=== PATIENT | male | born 1990 | race Caucasian/White ===

== ENCOUNTER 2016-07-20 12:36 | Observation (INO) | payer BC ==
[2016-07-20] VITALS (7 sets, daily range): BP systolic 100–136; BP diastolic 63–73; PULSE 62–75; TEMP 36.4–36.7; O2SAT 94–98; Ht 180.3 cm; Wt 89.1 kg
[~2016-07-20] VITALS: Ht 180.3 cm; Wt 89.1 kg
[~2016-07-20 12:36] MED LIST: ALBUAER19 INH
[2016-07-20] MEDS ORDERED: SODIUM CHLORIDE 0.9% 1000ML 1,000 ML IV STA (12:55)
[2016-07-20] MEDS ORDERED: OPTIRAY 320 IV PRN (13:00)
--- NOTE | 2016-07-20 13:02 | EMERGENCY ROOM VISIT NOTE ---
History First contact with patient: 12:42 Chief Complaint: ABDOMINAL PAIN Stated Complaint: ABD PAIN,APPENDIX Nursing Triage Summary: pt sent over from [facility] for RLQ pain since yesterday no n/v/d History of Present Illness The patient is a 25 year old male who presents to the Emergency Room with complaints of abdominal pain. The patient states his pain started last night around 4 PM. He states that the pain has localized to the right lower quadrant. He rates his discomfort a 5/10. He states he does have some pain that radiates to both testicles. He denies any nausea, vomiting or diarrhea. He denies any fevers. He denies any pain in his chest or trouble breathing. He denies any recent illness. He denies any penile rash. He denies any dysuria , urgency or frequency. He denies any history of abdominal surgery. He states that he had his wisdom teeth removed in the past and did have some agitation after the anesthesia. The patient was seen at the walk-in clinic and was referred to the emergency department for evaluation of possible appendicitis. Review of Systems A 10 system review of systems was completed with positives and pertinent negatives listed in the HPI. Past Medical/Surgical History Medical Problems: (1) abdominal pain, acute appendicitis (2) abdominal pain, acute appendicitis Patient denies Social History Alcohol Use: none Occupation Status: employed Current/Historical Medications Scheduled Albuterol Hfa (Ventolin Hfa), 2 PUFFS INH QID Fluticasone Prop/Salmeterol (Advair Diskus 250/50 60 Dose), Unknown Dose INH BID Allergies Coded Allergies: No Known Allergies (Unverified , 07/20/16) Physical Exam Vital Signs Date Time Temp Pulse Resp B/P Pulse Ox O2 Delivery O2 Flow Rate FiO2 07/20/16 20:15 36.7 65 16 127/80 98 Mask 2 07/20/16 20:05 71 18 114/77 98 Mask 2 07/20/16 19:55 75 18 132/83 97 Mask 2 07/20/16 19:45 36.7 80 16 135/73 100 Mask 10 07/20/16 19:38 36.7 66 16 140/71 100 Mask 10 07/20/16 17:17 70 16 121/80 97 Room Air 07/20/16 17:06 98 Room Air 07/20/16 15:41 76 15 121/80 98 Room Air 07/20/16 14:53 69 20 112/69 07/20/16 12:40 36.7 81 18 117/81 98 Room Air Physical Exam VITALS: Vitals are noted on the nurse's note and reviewed by myself. Vital signs stable. GENERAL: This is a 25-year-old male, in no acute distress, nondiaphoretic, well- developed well-nourished. SKIN: The skin was without rashes, erythema, edema, or bruising. There is no tenting of the skin. Capillary reflex less than 2 seconds. HEAD: Normocephalic atraumatic. EARS: External auditory canals clear, tympanic membranes pearly gentile without erythema or effusion bilaterally. EYES: Pupils equal round and reactive to light and accommodation. Conjunctivae without injection, sclerae without icterus. Extraocular movements intact. NOSE: Patent, turbinates without inflammation or discharge. MOUTH: Mucous membranes moist. Tonsils are not enlarged. Pharynx without erythema or exudate. Uvula midline. Airway patent. Tongue does not deviate. NECK: Supple without nuchal rigidity. No JVD. HEART: Regular rate and rhythm without murmurs gallops or rubs. LUNGS: Clear to auscultation bilaterally without wheezes, rales or rhonchi. No retractions or accessory muscle use. ABDOMEN: Positive bowel sounds x 4. Soft, marked right lower quadrant tenderness, without masses or organomegaly. MUSCULOSKELETAL: No muscle atrophy, erythema, or edema noted. Full range of motion in all extremities. Normal gait. Strength 5/5 throughout. NEURO: Patient was alert and oriented to person place and time. No focal neurological deficits. Medical Decision & Procedures ER Provider Diagnostic Interpretation: [~ rep ct add3]] CT SCAN OF THE ABDOMEN AND PELVIS WITH IV CONTRAST CLINICAL HISTORY: Right lower quadrant abdominal pain. COMPARISON STUDY: Radiographs of lumbar spine dated 04/03/2011. TECHNIQUE: Following the IV administration of 116 cc of Optiray 320, CT scan of the abdomen and pelvis is performed from the lung bases to the proximal femora. Images are reviewed in the axial, sagittal, and coronal planes. IV contrast was administered without complication. Automated dose control exposure was utilized. CT DOSE: 360.83 mGy.cm FINDINGS: Lung bases: The heart is normal in size and without pericardial effusion. The lung bases are clear. Liver: The contrast-enhanced liver is normal in size, contour, and attenuation. There is no intrahepatic biliary ductal dilatation. The hepatic veins and portal veins are patent. Gallbladder: Unremarkable. Spleen: Normal in size and attenuation. Pancreas: Unremarkable. Adrenal glands: Unremarkable. Kidneys: The contrast enhanced kidneys are normal in size and without hydronephrosis. The kidneys enhance symmetrically. Abdominal vasculature: The abdominal aorta is normal in course and caliber. Bowel: The small bowel and colon are normal in course and caliber. The appendix is distended and fluid-filled, measuring up to 10 mm diameter. The appendiceal wall is thickened and hyperemic and there is mild periappendiceal inflammatory stranding. The appearance is consistent with acute appendicitis. There is no evidence of abscess. Peritoneum: There is no intraperitoneal free air or abdominal ascites. There is a small fat-containing umbilical hernia. Lymphadenopathy: None. Pelvic viscera: The bladder, prostate, and seminal vesicles are normal as visualized. Skeletal structures: No lytic or blastic lesions are seen. IMPRESSION: Findings are consistent with acute appendicitis. There is no evidence of abscess or perforation. Laboratory Results 07/20/16 13:05 Red Blood Count 4.90, Mean Corpuscular Volume 88.2, Mean Corpuscular Hemoglobin 32.0, Mean Corpuscular Hemoglobin Concent 36.3, Mean Platelet Volume 10.4, Neutrophils (%) (Auto) 71.4, Lymphocytes (%) (Auto) 20.4, Monocytes (%) (Auto) 6.8, Eosinophils (%) (Auto) 0.8, Basophils (%) (Auto) 0.4, Neutrophils # (Auto) 7.23, Lymphocytes # (Auto) 2.06, Monocytes # (Auto) 0.69, Eosinophils # (Auto) 0.08, Basophils # (Auto) 0.04 07/20/16 13:05 Test 07/20/16 13:05 07/20/16 13:10 White Blood Count 10.12 K/uL (4.8-10.8) Red Blood Count 4.90 M/uL (4.7-6.1) Hemoglobin 15.7 g/dL (14.0-18.0) Hematocrit 43.2 % (42-52) Mean Corpuscular Volume 88.2 fL (80-100) Mean Corpuscular Hemoglobin 32.0 pg (25-34) Mean Corpuscular Hemoglobin Concent 36.3 g/dl (32-36) Platelet Count 271 K/uL (130-400) Mean Platelet Volume 10.4 fL (7.4-10.4) Neutrophils (%) (Auto) 71.4 % Lymphocytes (%) (Auto) 20.4 % Monocytes (%) (Auto) 6.8 % Eosinophils (%) (Auto) 0.8 % Basophils (%) (Auto) 0.4 % Neutrophils # (Auto) 7.23 K/uL (1.4-6.5) Lymphocytes # (Auto) 2.06 K/uL (1.2-3.4) Monocytes # (Auto) 0.69 K/uL (0.11-0.59) Eosinophils # (Auto) 0.08 K/uL (0-0.5) Basophils # (Auto) 0.04 K/uL (0-0.2) RDW Standard Deviation 38.9 fL (36.4-46.3) RDW Coefficient of Variation 12.2 % (11.5-14.5) Immature Granulocyte % (Auto) 0.2 % Immature Granulocyte # (Auto) 0.02 K/uL (0.00-0.02) Anion Gap 9.0 mmol/L (3-11) Est Creatinine Clear Calc Drug Dose 111.2 ml/min Estimated GFR () 109.1 Estimated GFR (Non- 94.1 BUN/Creatinine Ratio 13.3 (10-20) Calcium Level 9.4 mg/dl (8.5-10.1) Total Bilirubin 0.7 mg/dl (0.2-1) Aspartate Amino Transf (AST/SGOT) 13 U/L (15-37) Alanine Aminotransferase (ALT/SGPT) 23 U/L (12-78) Alkaline Phosphatase 101 U/L (45-117) Total Protein 8.5 gm/dl (6.4-8.2) Albumin 4.6 gm/dl (3.4-5.0) Globulin 3.9 gm/dl (2.5-4.0) Albumin/Globulin Ratio 1.2 (0.9-2) Urine Color YELLOW Urine Appearance CLOUDY (CLEAR) Urine pH 8.0 (4.5-7.5) Urine Specific Grayson 1.022 (1.000-1.030) Urine Protein NEG (NEG) Urine Glucose (UA) NEG (NEG) Urine Ketones NEG (NEG) Urine Occult Blood NEG (NEG) Urine Nitrite NEG (NEG) Urine Bilirubin NEG (NEG) Urine Urobilinogen NEG (NEG) Urine Leukocyte Esterase NEG (NEG) Urine WBC (Auto) 0 /hpf (0-5) Urine RBC (Auto) 0-4 /hpf (0-4) Urine Hyaline Casts (Auto) 0 /lpf (0-5) Urine Epithelial Cells (Auto) 0-5 /lpf (0-5) Urine Bacteria (Auto) NEG (NEG) Medications Administered Medications (Trade) Dose Ordered Sig/Alyson Route Start Time Stop Time Status Last Admin Dose Admin Sodium Chloride (Nss 1000ml) 1,000 ml @ 999 mls/hr Q1H1M STAT IV 07/20/16 12:55 07/20/16 13:55 DC 07/20/16 13:17 999 MLS/HR Cefoxitin Sodium (Mefoxin IV) 2,000 mg NOW STAT IV 07/20/16 16:01 07/20/16 16:03 DC 07/20/16 17:22 2,000 MG Miscellaneous (Orm Miscellaneous Med) 20 ea ONE ONCE TOP 07/20/16 19:17 07/20/16 19:18 DC 07/20/16 19:17 8.5 EA Bupivacaine HCl (Marcaine 0.5% MPF Inj) 30 ml ONE ONCE INJ 07/20/16 19:17 07/20/16 19:18 DC 07/20/16 19:17 8.5 ML ED Course The patient was seen and examined. Previous visits were reviewed. The patient does not have a fever or leukocytosis. He does not have any significant electrolyte abnormalities. Urinalysis was negative. The patient was hydrated with normal saline He was given [address] scan of the abdomen and pelvis reveals acute appendicitis without abscess I discussed the case with the on-call general surgeon, Dr. Mancia, who evaluated the patient in the emergency department and will take the patient to the operating room. The case was discussed with Dr. Can who agrees with the assessment and treatment plan Medical Decision DIFFERENTIAL DIAGNOSIS: Hepatitis, cholecystitis, cholangitis, biliary colic, pancreatitis, pneumonia, subdiaphragmatic abscess, appendicitis, inguinal hernia , nephrolithiasis, inflammatory bowel disease, mesenteric adenitis, peptic ulcer disease, GERD, gastritis, pancreatitis, gastroenteritis, bowel obstruction , splenic infarct, diverticulitis, mesenteric ischemia, metabolic, peritonitis , among others. Impression Primary Impression: abdominal pain, acute appendicitis Departure Information Referrals No Doctor, Assigned (PCP) Patient Instructions [facility]
[2016-07-20] MEDS ORDERED: ADVIN25/60 INH (13:05)
[2016-07-20] MEDS ORDERED: VNTHFA/IN INH (13:06)
[2016-07-20 13:25] LABS: BASO % 0.4 %; BASO ABS # 0.04 K/uL (0-0.2); COMPLETE YES; EOS % 0.8 %; HEMATOCRIT 43.2 % (42-52); IG% 0.2 %; LYMPH % 20.4 %; LYMPH ABS # 2.06 K/uL (1.2-3.4); MEAN CELL VOLUME 88.2 fL (80-100); MEAN CORPUSCULAR HGB CONC 36.3 g/dl (32-36); MEAN PLATELET VOLUME 10.4 fL (7.4-10.4); MONO % 6.8 %; NEUT % 71.4 %; PLATELET COUNT 271 K/uL (130-400); WHITE BLOOD COUNT 10.12 K/uL (4.8-10.8)
[2016-07-20 13:25] LABS: URINE APPEARANCE CLOUDY (CLEAR); URINE BILIRUBIN NEG (NEG); URINE COLOR YELLOW; URINE EPITHELIAL CELL AUTO 0-5 /lpf (0-5); URINE NITRITE NEG (NEG); URINE SPECIFIC GRAVITY 1.022 (1.000-1.030); UROBILINOGEN NEG (NEG); ZZUR CULT IF INDIC CLEAN CATCH NO
[2016-07-20 13:38] LABS: MANUAL MICROSCOPIC REQUIRED? NO; REVIEW REQ? NO
[2016-07-20 13:45] LABS: BUN/CREATININE RATIO 13.3 (10-20); CALCIUM 9.4 mg/dl (8.5-10.1); CREATININE 1.1 mg/dl (0.60-1.40); POTASSIUM 4.3 mmol/L (3.5-5.1)
[2016-07-20 13:48] LABS: ALB/GLOB RATIO 1.2 (0.9-2)
--- NOTE | 2016-07-20 15:38 | DIAGNOSTIC IMAGING REPORT ---
CT SCAN OF THE ABDOMEN AND PELVIS WITH IV CONTRAST CLINICAL HISTORY: Right lower quadrant abdominal pain. COMPARISON STUDY: Radiographs of lumbar spine dated 04/03/2011. TECHNIQUE: Following the IV administration of 116 cc of Optiray 320, CT scan of the abdomen and pelvis is performed from the lung bases to the proximal femora. Images are reviewed in the axial, sagittal, and coronal planes. IV contrast was administered without complication. Automated dose control exposure was utilized. CT DOSE: 360.83 mGy.cm FINDINGS: Lung bases: The heart is normal in size and without pericardial effusion. The lung bases are clear. Liver: The contrast-enhanced liver is normal in size, contour, and attenuation. There is no intrahepatic biliary ductal dilatation. The hepatic veins and portal veins are patent. Gallbladder: Unremarkable. Spleen: Normal in size and attenuation. Pancreas: Unremarkable. Adrenal glands: Unremarkable. Kidneys: The contrast enhanced kidneys are normal in size and without hydronephrosis. The kidneys enhance symmetrically. Abdominal vasculature: The abdominal aorta is normal in course and caliber. Bowel: The small bowel and colon are normal in course and caliber. The appendix is distended and fluid-filled, measuring up to 10 mm diameter. The appendiceal wall is thickened and hyperemic and there is mild periappendiceal inflammatory stranding. The appearance is consistent with acute appendicitis. There is no evidence of abscess. Peritoneum: There is no intraperitoneal free air or abdominal ascites. There is a small fat-containing umbilical hernia. Lymphadenopathy: None. Pelvic viscera: The bladder, prostate, and seminal vesicles are normal as visualized. Skeletal structures: No lytic or blastic lesions are seen. IMPRESSION: Findings are consistent with acute appendicitis. There is no evidence of abscess or perforation. Electronically signed by: Ricardo Taylor M.D. 07/20/2016 3:36 PM Dictated Date/Time: 07/20/2016 3:31 PM
[2016-07-20] MEDS ORDERED: CEFOXITIN SOD 2 GM VIAL IV STA (16:01)
--- NOTE | 2016-07-20 16:46 | History and Physical ---
History & Physical Date & Time of Service: Jul 20, 2016 at 16:39 Chief Complaint: Abd Pain,Appendix Primary Care Physician: Mercedes Tanner M.D. History of Present Illness Source: patient, family pt is a 25 familia old male who presents to ER foe one day history of abdominal pain, with nausea and vominting, the pain is located at RLQ, pt denies diarrhea , no fever, Social History Smoking Status: Never Smoker Smokeless Tobacco Use: No Alcohol Use: none Drug Use: none Marital Status: single Occupational Status: employed Multi-Drug Resistant Organisms History of MDRO: No Allergies Coded Allergies: No Known Allergies (Unverified , 07/20/16) Home Medications Scheduled Albuterol Hfa (Ventolin Hfa), 2 PUFFS INH QID Fluticasone Prop/Salmeterol (Advair Diskus 250/50 60 Dose), Unknown Dose INH BID Review of Systems Constitutional: No chills, No fatigue, No fever, No problem reported, No sweats , No weakness, No weight loss Eyes: No diplopia, No discharge, No eye pain, No problem reported, No redness, No worsening of vision ENT: No dental problems, No hearing loss, No nasal symptoms, No problem reported, No sore throat, No tinnitus, No trouble swallowing, No unusual epistaxis Respiratory: No cough, No dyspnea at rest, No dyspnea on exertion, No hemoptysis, No problem reported, No shortness of breath, No sputum, No wheezing Cardiovascular: No PND, No chest pain, No claudication, No edema, No orthopnea , No palpitations, No problem reported Abdomen: + nausea, + pain, + vomiting Musculoskeletal: No calf pain, No joint pain, No muscle pain, No problem reported, No swelling Genitourinary - Male: No dysuria, No hematuria, No impotence, No lesions, No penile discharge, No problem reported, No urinary frequency, No urinary hesitancy, No urinary incontinence, No urinary retention, No urinary urgency Neurologic: No balance problems, No memory loss, No numbness/tingling, No paralysis, No problem reported, No vertigo, No weakness Psychiatric: No anhedonism, No anxiety, No depression symptoms, No insomnia, No problem reported, No substance abuse Endocrine: No excessive thirst, No excessive urination, No fatigue, No problem reported Hematologic / Lymphatic: No abnormal bleeding/bruising, No clotting problems, No night sweats, No problem reported, No swollen lymph nodes Physical Exam Vital Signs Date Time Temp Pulse Resp B/P Pulse Ox O2 Delivery O2 Flow Rate FiO2 07/20/16 15:41 76 15 121/80 98 Room Air 07/20/16 14:53 69 20 112/69 07/20/16 12:40 36.7 81 18 117/81 98 Room Air General Appearance: WD/WN, + mild distress Head: normocephalic Eyes: normal inspection, PERRL ENT: normal ENT inspection, hearing grossly normal Neck: supple, no adenopathy Respiratory/Chest: chest non-tender, lungs clear, normal breath sounds Cardiovascular: regular rate, rhythm, no edema, no gallop, no JVD Abdomen/GI: + tenderness, + guarding Back: normal inspection Extremities/Musculoskelatal: normal inspection, no calf tenderness, normal capillary refill Neurologic/Psych: validation consultant II-XII nml as tested, no motor/sensory deficits Skin: normal color, warm/dry Diagnostics Laboratory Results Results Past 24 Hours Test 07/20/16 13:05 07/20/16 13:10 Range/Units White Blood Count 10.12 4.8-10.8 K/uL Red Blood Count 4.90 4.7-6.1 M/uL Hemoglobin 15.7 14.0-18.0 g/dL Hematocrit 43.2 42-52 % Mean Corpuscular Volume 88.2 80-100 fL Mean Corpuscular Hemoglobin 32.0 25-34 pg Mean Corpuscular Hemoglobin Concent 36.3 32-36 g/dl Platelet Count 271 130-400 K/uL Mean Platelet Volume 10.4 7.4-10.4 fL Neutrophils (%) (Auto) 71.4 % Lymphocytes (%) (Auto) 20.4 % Monocytes (%) (Auto) 6.8 % Eosinophils (%) (Auto) 0.8 % Basophils (%) (Auto) 0.4 % Neutrophils # (Auto) 7.23 1.4-6.5 K/uL Lymphocytes # (Auto) 2.06 1.2-3.4 K/uL Monocytes # (Auto) 0.69 0.11-0.59 K/uL Eosinophils # (Auto) 0.08 0-0.5 K/uL Basophils # (Auto) 0.04 0-0.2 K/uL RDW Standard Deviation 38.9 36.4-46.3 fL RDW Coefficient of Variation 12.2 11.5-14.5 % Immature Granulocyte % (Auto) 0.2 % Immature Granulocyte # (Auto) 0.02 0.00-0.02 K/uL Sodium Level 141 136-145 mmol/L Potassium Level 4.3 3.5-5.1 mmol/L Chloride Level 102 98-107 mmol/L Carbon Dioxide Level 30 21-32 mmol/L Anion Gap 9.0 3-11 mmol/L Blood Urea Nitrogen 15 7-18 mg/dl Creatinine 1.10 0.60-1.40 mg/dl Est Creatinine Clear Calc Drug Dose 111.2 ml/min Estimated GFR () 109.1 Estimated GFR (Non- 94.1 BUN/Creatinine Ratio 13.3 10-20 Random Glucose 84 70-99 mg/dl Calcium Level 9.4 8.5-10.1 mg/dl Total Bilirubin 0.7 0.2-1 mg/dl Aspartate Amino Transf (AST/SGOT) 13 15-37 U/L Alanine Aminotransferase (ALT/SGPT) 23 12-78 U/L Alkaline Phosphatase 101 45-117 U/L Total Protein 8.5 6.4-8.2 gm/dl Albumin 4.6 3.4-5.0 gm/dl Globulin 3.9 2.5-4.0 gm/dl Albumin/Globulin Ratio 1.2 0.9-2 Urine Color YELLOW Urine Appearance CLOUDY CLEAR Urine pH 8.0 4.5-7.5 Urine Specific [place] 1.022 1.000-1.030 Urine Protein NEG NEG Urine Glucose (UA) NEG NEG Urine Ketones NEG NEG Urine Occult Blood NEG NEG Urine Nitrite NEG NEG Urine Bilirubin NEG NEG Urine Urobilinogen NEG NEG Urine Leukocyte Esterase NEG NEG Urine WBC (Auto) 0 0-5 /hpf Urine RBC (Auto) 0-4 0-4 /hpf Urine Hyaline Casts (Auto) 0 0-5 /lpf Urine Epithelial Cells (Auto) 0-5 0-5 /lpf Urine Bacteria (Auto) NEG NEG Diagnostic Radiology CT scan-IMPRESSION: Findings are consistent with acute appendicitis. There is no evidence of abscess or perforation. Impression Assessment and Plan IMP acute appendicitis Plan, pt will go to OR for laparoscopic appendectomy, possible open, D/W benefits, risks and alternatives of the procedure, the risks- infection, bleeding, injury bowel,abscess, incisional hernia, , pt and his mother understood, they agree with the plan, I answered all questions, ASA Classification: ASA Class I
[2016-07-20] MEDS ORDERED: MIDAZOLAM HCL 1 MG/ML 2ML VIAL ONE (17:29)
[2016-07-20] MEDS ORDERED: FENTANYL CITRATE INJ 50 MCG/1 ML 2 ML VIAL ONE ×3 (17:29→18:38)
[2016-07-20] MEDS ORDERED: FENTANYL CITRATE INJ 50 MCG/1 ML 2 ML VIAL IV PRN (18:00)
[2016-07-20] MEDS ORDERED: EpHEDrine SULFATE INJ 50 MG/ML AMP IV PRN (18:00)
[2016-07-20] MEDS ORDERED: HYDROmorphone INJ 1 MG/ML SYR IV PRN (18:00)
[2016-07-20] MEDS ORDERED: ATROPINE SULFATE 0.1 MG/ML 5ML SYR IV PRN (18:00)
[2016-07-20] MEDS ORDERED: ALBUTEROL 0.083% NEBU SOLN 3 ML VIAL INH ONE (18:00)
[2016-07-20] MEDS ORDERED: ONDANSETRON INJ 2 MG/ML 2 ML VIAL IV PRN ×2 (18:00→19:45)
[2016-07-20] MEDS ORDERED: DEXAMETHASONE SOD INJ 4 MG/ML VIAL ONE (18:18)
[2016-07-20] MEDS ORDERED: ROCURONIUM BROMID 50MG/5ML SYR ONE (18:21)
[2016-07-20] MEDS ORDERED: LIDOCAINE HCL 2% 2 ML VIAL (20MG/ML) ONE (18:21)
[2016-07-20] MEDS ORDERED: SUCCINYLCHOLINE CHLORIDE 20 MG/ML 10 ML VIAL IV ONE (18:21)
[2016-07-20] MEDS ORDERED: PROPOFOL IV EMULSION 10 MG/ML 20 ML VIAL IV ONE (18:21)
[2016-07-20] MEDS ORDERED: NEOSTIGMINE METHYLSULFATE 5 MG/5 ML SYR ONE (18:31)
[2016-07-20] MEDS ORDERED: GLYCOPYRROLATE INJ 0.2 MG/ML VIAL ONE (18:31)
[2016-07-20] MEDS ORDERED: ONDANSETRON INJ 2 MG/ML 2 ML VIAL ONE ×2 (18:49)
[2016-07-20] MEDS ORDERED: ORM MISCELLANEOUS MED TOP ONE (19:17)
[2016-07-20] MEDS ORDERED: BUPIVACAINE 0.5 % 5 MG/1 ML MPF 30ML VIAL INJ ONE (19:17)
--- NOTE | 2016-07-20 19:45 | [facility] Post Operative Brief Note ---
Immediate Operative Summary Operative Date Jul 20, 2016. Pre-Operative Diagnosis Acute appendicitis Post-Operative Diagnosis Acute appendicitis Procedure(s) Performed Laparoscopic Appendectomy Surgeon Dr. Mancia Flare Worker Surgeon(s) none Estimated Blood Loss 10 mL Findings acute appendicitis Specimens A: appendix Drains none Anesthesia general Complication(s) None Disposition Recovery Room / PACU
--- NOTE | 2016-07-20 20:11 | Anesthesiology Progress Note ---
Anesthesia Post Op Note Date & Time Jul 20, 2016 at 20:10 Vital Signs Pain Intensity: 3 Vital Signs Past 12 Hours Date Time Temp Pulse Resp B/P Pulse Ox O2 Delivery O2 Flow Rate FiO2 07/20/16 20:05 71 18 114/77 98 Mask 2 07/20/16 19:55 75 18 132/83 97 Mask 2 07/20/16 19:45 36.7 80 16 135/73 100 Mask 10 07/20/16 19:38 36.7 66 16 140/71 100 Mask 10 07/20/16 17:17 70 16 121/80 97 Room Air 07/20/16 17:06 98 Room Air 07/20/16 15:41 76 15 121/80 98 Room Air 07/20/16 14:53 69 20 112/69 07/20/16 12:40 36.7 81 18 117/81 98 Room Air Notes Mental Status: alert / awake / arousable, participated in evaluation Pt Amnestic to Procedure: Yes Nausea / Vomiting: adequately controlled Pain: adequately controlled Airway Patency, RR, SpO2: stable & adequate BP & HR: stable & adequate Hydration State: stable & adequate Anesthetic Complications: no major complications apparent
[2016-07-20] MEDS ORDERED: IV FLUIDS COMPLETED PRN (20:45)
[2016-07-20] MEDS ORDERED: D5NSS + 20MEQ KCL 1,000 ML IV SCH (21:00)
[2016-07-20] MEDS: OXYCODONE/ACETAMINOPHEN 5-325 TAB PO PRN (21:04)
[2016-07-20] MEDS: HYDROmorphone INJ 1 MG/ML SYR IV PRN (23:46)
--- NOTE | 2016-07-21 00:25 | OPERATIVE REPORT ---
DATE OF OPERATION: 07/20/2016 PREOPERATIVE DIAGNOSIS: Acute appendicitis. POSTOPERATIVE DIAGNOSIS: Same. PROCEDURE: Laparoscopic appendectomy. SURGEON: Yvonne Mancia MD ANESTHESIA: General. ESTIMATED BLOOD LOSS: About 10 mL. FINDINGS: Acute appendicitis. COMPLICATIONS: None. IV FLUIDS: 1500 mL. ENVIRONMENTAL INTERN: Nurse. INDICATIONS FOR THE PROCEDURE: This is a 25-year-old gentleman, who presented to the ED with a one-day history of right lower quadrant pain. The patient had a CT scan confirming diagnosis of acute appendicitis. We decided to take the patient to the OR to do a laparoscopic appendectomy, possible open. I did talk to the patient and patient's family members about the benefits, risks and alternatives of the procedure. I indicated the risks may include but not limited such as bleeding, infection, abscess, injury to bowel, incisional hernia and even . They understand. The patient signed informed consent and I answered all questions. They agreed to proceed. DETAILS OF THE PROCEDURE: We brought the patient to the OR and put the patient in the supine position. The patient received SCDs on bilateral legs to prevent DVT. Also, the patient received the insertion of [id number]. The patient received 2 gram cefoxitin IV for prophylactic antibiotic. The patient received general anesthesia without difficulty. The abdomen was prepped and draped in routine sterile fashion. After a timeout, I injected local anesthesia by using 1% lidocaine mixed with 0.5% Marcaine above the umbilical area. Then I made a small incision just above umbilicus, opened fascia and opened peritoneum under direct vision; however, when we got into the abdomen, we put a 10 mm camera in, we found there was about 0.5 cm serosal tear on the small bowel. At this moment, under direct vision using 3-0 Vicryl interrupted, closed the serosa and rechecked and no leak and no full layer opening. Then we put the camera in, connected to CO2 to create pneumoperitoneum and flow rate is 6 liters per minute, pressure not more than 14 mmHg. Once we got a nice pneumoperitoneum, we looked around the abdomen, it showed normal findings on the stomach, small bowel, large bowel, liver and no free fluid on the pelvic area. Then we put another one 5 mm trocar on the right upper quadrant, another 5 mm trocar on the left side lower quadrant. Once all trocars were in, we looked at the right side cecum area and found the patient has acute appendicitis, so we made a window on the appendix area at the base of the appendix, passed an Endo-GRABIEL stapler transecting the appendix on the base of the appendix and I used Harmonic to take down the appendix. The area was rechecked, no active bleeding, no leak. Then we used the catch bag to take out the appendix. Then we removed all trocars under direct vision, no active bleeding. The pneumoperitoneum was released. We closed the umbilical incision and fascial layer by using #1 Vicryl [id number] x 2. We closed the subcutaneous layer by using 2-0 Vicryl, closed skin by using 4-0 Vicryl and closed another two 5 mm trocar sites and skin only using 4-0 Vicryl. Then we put the dressing on. The patient tolerated the procedure well. After the procedure, the patient was transferred to recovery room in stable condition. All the instrument, needle and sponge count were correct x2 at the end of case. After the procedure, I did talk to the patient and family members about the OR findings and procedure we did. I also informed the patient's family members about the small bowel serosal tear about 5 mm, interrupted suture repair. They understand. I attest to the content of the Intraoperative Record and any orders documented therein. Any exceptions are noted below. ARRON
[2016-07-21] MEDS: CEFOXITIN IV 1,000 MG in DEXTROSE 5% 50ML 50 ML IV SCH ×3 (02:11→08:41)
[2016-07-21] MEDS: OXYCODONE/ACETAMINOPHEN 5-325 TAB PO PRN (02:21)
[2016-07-21] MEDS: HYDROmorphone INJ 1 MG/ML SYR IV PRN ×3 (03:05→10:28)
[2016-07-21 03:59] VITALS: BP 102/60; PULSE 84; TEMP 36.6; O2SAT 94
[2016-07-21 06:25] LABS: BASO % 0.1 %; BASO ABS # 0.01 K/uL (0-0.2); COMPLETE YES; HEMATOCRIT 39.3 % (42-52); IG% 0.3 %; LYMPH % 11.7 %; LYMPH ABS # 1.24 K/uL (1.2-3.4); MEAN CELL VOLUME 87.9 fL (80-100); MEAN CORPUSCULAR HEMOGLOBIN 30.6 pg (25-34); MEAN CORPUSCULAR HGB CONC 34.9 g/dl (32-36); MEAN PLATELET VOLUME 10.7 fL (7.4-10.4); MONO % 4.6 %; NEUT % 83.3 %; PLATELET COUNT 267 K/uL (130-400); RED BLOOD COUNT 4.47 M/uL (4.7-6.1); WHITE BLOOD COUNT 10.59 K/uL (4.8-10.8)
[2016-07-21 07:00] VITALS: BP 105/50; PULSE 59; TEMP 36.5; O2SAT 94
--- NOTE | 2016-07-21 08:29 | Surgery Progress Note ---
Surgery Progress Note Date of Service Jul 21, 2016. Subjective Post OP Day: 1 + feeling well F/U S/P lap appy, pt is doing fine, no Nausea, no vomiting,I update information of OR finding and ladarius procedure we did, pt understood, Objective Vital Signs: Date Time Temp Pulse Resp B/P Pulse Ox O2 Delivery O2 Flow Rate FiO2 07/21/16 08:10 Room Air 07/21/16 07:00 36.5 59 16 105/50 94 Room Air 07/21/16 03:59 36.6 84 16 102/60 94 Room Air 07/20/16 23:48 Room Air 07/20/16 23:25 36.6 66 16 100/63 95 Room Air 07/20/16 22:33 36.4 62 14 113/72 94 Room Air 07/20/16 21:26 36.6 70 16 116/72 95 07/20/16 20:57 36.7 73 16 122/73 94 Room Air 07/20/16 20:36 36.5 75 16 136/72 95 Room Air 07/20/16 20:25 95 Room Air 07/20/16 20:25 95 Room Air Mask 07/20/16 20:15 36.7 65 16 127/80 98 Mask 2 07/20/16 20:05 71 18 114/77 98 Mask 2 07/20/16 19:55 75 18 132/83 97 Mask 2 07/20/16 19:45 36.7 80 16 135/73 100 Mask 10 07/20/16 19:38 36.7 66 16 140/71 100 Mask 10 07/20/16 17:17 70 16 121/80 97 Room Air 07/20/16 17:06 98 Room Air 07/20/16 15:41 76 15 121/80 98 Room Air 07/20/16 14:53 69 20 112/69 07/20/16 12:40 36.7 81 18 117/81 98 Room Air General Appearance: WD/WN Head: normocephalic Neck: supple, no JVD Respiratory/Chest: chest non-tender, lungs clear, normal breath sounds Cardiovascular: regular rate, rhythm, no edema, no gallop, no JVD Abdomen: normal bowel sounds, non distended, soft, + tenderness Incision(s): clean, dry, intact Extremities: normal range of motion, non-tender, normal inspection Laboratory Results: Results Past 24 Hours Test 07/20/16 13:05 07/20/16 13:10 07/21/16 05:50 Range/Units White Blood Count 10.12 10.59 4.8-10.8 K/uL Red Blood Count 4.90 4.47 4.7-6.1 M/uL Hemoglobin 15.7 13.7 14.0-18.0 g/dL Hematocrit 43.2 39.3 42-52 % Mean Corpuscular Volume 88.2 87.9 80-100 fL Mean Corpuscular Hemoglobin 32.0 30.6 25-34 pg Mean Corpuscular Hemoglobin Concent 36.3 34.9 32-36 g/dl Platelet Count 271 267 130-400 K/uL Mean Platelet Volume 10.4 10.7 7.4-10.4 fL Neutrophils (%) (Auto) 71.4 83.3 % Lymphocytes (%) (Auto) 20.4 11.7 % Monocytes (%) (Auto) 6.8 4.6 % Eosinophils (%) (Auto) 0.8 0.0 % Basophils (%) (Auto) 0.4 0.1 % Neutrophils # (Auto) 7.23 8.82 1.4-6.5 K/uL Lymphocytes # (Auto) 2.06 1.24 1.2-3.4 K/uL Monocytes # (Auto) 0.69 0.49 0.11-0.59 K/uL Eosinophils # (Auto) 0.08 0.00 0-0.5 K/uL Basophils # (Auto) 0.04 0.01 0-0.2 K/uL RDW Standard Deviation 38.9 38.3 36.4-46.3 fL RDW Coefficient of Variation 12.2 12.0 11.5-14.5 % Immature Granulocyte % (Auto) 0.2 0.3 % Immature Granulocyte # (Auto) 0.02 0.03 0.00-0.02 K/uL Sodium Level 141 136-145 mmol/L Potassium Level 4.3 3.5-5.1 mmol/L Chloride Level 102 98-107 mmol/L Carbon Dioxide Level 30 21-32 mmol/L Anion Gap 9.0 3-11 mmol/L Blood Urea Nitrogen 15 7-18 mg/dl Creatinine 1.10 0.60-1.40 mg/dl Est Creatinine Clear Calc Drug Dose 111.2 ml/min Estimated GFR () 109.1 Estimated GFR (Non- 94.1 BUN/Creatinine Ratio 13.3 10-20 Random Glucose 84 70-99 mg/dl Calcium Level 9.4 8.5-10.1 mg/dl Total Bilirubin 0.7 0.2-1 mg/dl Aspartate Amino Transf (AST/SGOT) 13 15-37 U/L Alanine Aminotransferase (ALT/SGPT) 23 12-78 U/L Alkaline Phosphatase 101 45-117 U/L Total Protein 8.5 6.4-8.2 gm/dl Albumin 4.6 3.4-5.0 gm/dl Globulin 3.9 2.5-4.0 gm/dl Albumin/Globulin Ratio 1.2 0.9-2 Urine Color YELLOW Urine Appearance CLOUDY CLEAR Urine pH 8.0 4.5-7.5 Urine Specific Merrill 1.022 1.000-1.030 Urine Protein NEG NEG Urine Glucose (UA) NEG NEG Urine Ketones NEG NEG Urine Occult Blood NEG NEG Urine Nitrite NEG NEG Urine Bilirubin NEG NEG Urine Urobilinogen NEG NEG Urine Leukocyte Esterase NEG NEG Urine WBC (Auto) 0 0-5 /hpf Urine RBC (Auto) 0-4 0-4 /hpf Urine Hyaline Casts (Auto) 0 0-5 /lpf Urine Epithelial Cells (Auto) 0-5 0-5 /lpf Urine Bacteria (Auto) NEG NEG Assessment & Plan IMP S/P laparoscopic appendectomy pt is doing fine, pt wants to go home, I gave pt the post-op care instruction, F/U 1 week
[2016-07-21] MEDS ORDERED: NURSING VERBAL MED ORDER ONE (08:30)
[2016-07-21] MEDS ORDERED: OXYCODONE/ACETAMINOPHEN 5-325 TAB ONE (08:33)
[2016-07-21] MEDS ORDERED: OXYC-57 PO (08:35)
--- NOTE | 2016-07-21 08:39 | Discharge Instructions ---
Discharge Instructions Admission Reason for Admission: Abdominal Pain, Acute Appendicitis Discharge Discharge Diagnosis / Problem: S/P laparoscopic appendectomy Discharge Goals Goal(s): Decrease discomfort, Improve function Activity Recommendations Activity Limitations: per Instructions/Follow-up section Lifting Limitations: no more than 25 pounds Exercise/Sports Limitations: gradually increase as tolerated May Resume Sexual Activity: when tolerated Shower/Bathe: may shower/bathe in 3 days Driving or Machine Use: resume 3 days after discharge . Instructions / Follow-Up Instructions / Follow-Up Keep all dressing for 4 days, he can take a shower on 07/24/2016. no driving while taking pain medicine, he can take stool softer colace 100mg po twice a day , follow up 1 week, Current Hospital Diet Patient's current hospital diet: Clear Liquid Diet Discharge Diet Recommended Diet: Regular Diet Procedures Procedures Performed: Laparoscopic Appendectomy Pending Studies Studies pending at discharge: no Medical Emergencies . Who to Call and When: Medical Emergencies: If at any time you feel your situation is an emergency, please call 911 immediately. . Non-Emergent Contact Non-Emergency issues call your: Primary Care Provider Call Non-Emergent contact if: you have a fever, temperature is above 100.5, your pain is not controlled, your pain is worsening, wound has increased drainage, wound has increased redness . "Provider Documentation" section prepared by Yvonne Mancia. VTE Core Measure Inpt VTE Proph given/why not?: SCD's
[2016-07-21] MEDS ORDERED: OXYCODONE/ACETAMINOPHEN 5-325 TAB PO PRN (08:45)
[2016-07-21 09:09] VITALS: BP 105/50; PULSE 59; TEMP 36.5; O2SAT 94
--- NOTE | 2016-07-21 09:10 | DISCHARGE SUMMARY ---
DATE OF DISCHARGE: 07/21/2016 ADMITTING DIAGNOSIS: Acute appendicitis. DISCHARGE DIAGNOSIS: Same. OPERATION: Laparoscopy appendectomy. SURGEON: Dr. Yvonne Mancia. DETAIL OF DISCHARGE SUMMARY: This is 25-year-old gentleman who presented to the ED with a 1 day history of right lower quadrant pain. The patient had a CT scan showing acute appendicitis. We decided to take the patient to the OR. We did a laparoscopy appendectomy on 07/20/2016. The patient tolerated the procedure well. After the procedure the patient transferred to the recovery room and later on transferred to the surgical floor. The patient doing fine. Stable overnight, and the patient has no nausea, no vomiting and no fever. He tolerates diet. PHYSICAL EXAMINATION: VITAL SIGNS: This morning's vital sign, temperature is 36.5, heart rate is 59, respiratory rate 16, blood pressure is 105/50, O2 saturation 94% on room air. The patient is alert, awake, oriented x3. No distress. HEENT: WNL NEUROLOGIC: Intact. NECK: No JVD. CHEST: Bilateral lungs sound clear. HEART: Normal S1, S2. No murmur. ABDOMEN: Soft and not distended. Some incision pain. All dressings intact. No drainage from incision. EXTREMITIES: No edema. IMPRESSION: Status post laparoscopy appendectomy. PLAN: The patient wants to go home. I gave patient the postop care instructions. We will follow the patient in 1 week. ARRON
== END 2016-07-21 11:00 | disposition home or self-care (01) ==
LOC: ENRESERVDT → ENRESERVTM → C.EDB 12:37 → UNDOADMOB 19:44 → C.MSN 19:44
PROVIDERS: ADMIT Surgery; ATTEND Surgery
DX: K35.80 Unspecified acute appendicitis (principal)

== ENCOUNTER → 2017-01-14 | Outpatient (CLI) | payer BC ==
[~2017-01-14] MED LIST changes: +ADVIN25/60 INH; -ALBUAER19 INH; +OXYC-57 PO; +VNTHFA/IN INH
[2017-01-14 12:49] LABS: BASO % 0.9 %; BASO ABS # 0.05 K/uL (0-0.2); COMPLETE YES; HEMATOCRIT 43.3 % (42-52); IG% 0.4 %; LYMPH % 33.1 %; MEAN CELL VOLUME 87.5 fL (80-100); MEAN CORPUSCULAR HEMOGLOBIN 29.9 pg (25-34); MEAN CORPUSCULAR HGB CONC 34.2 g/dl (32-36); MEAN PLATELET VOLUME 10.8 fL (7.4-10.4); MONO % 8.8 %; NEUT % 54.8 %; PLATELET COUNT 258 K/uL (130-400); RED BLOOD COUNT 4.95 M/uL (4.7-6.1); WHITE BLOOD COUNT 5.43 K/uL (4.8-10.8)
[2017-01-14 13:13] LABS: ALT/SGPT 23 U/L (12-78); BLOOD UREA NITROGEN 12 mg/dl (7-18); BUN/CREATININE RATIO 12.3 (10-20); CALCIUM 9.4 mg/dl (8.5-10.1); CARBON DIOXIDE 28 mmol/L (21-32); CHLORIDE 105 mmol/L (98-107); CREATININE 0.98 mg/dl (0.60-1.40); GLUCOSE 79 mg/dl (70-99); POTASSIUM 4.2 mmol/L (3.5-5.1); SODIUM 139 mmol/L (136-145)
[2017-01-14 13:22] LABS: ESTIMATED AVERAGE GLUCOSE 103 mg/dl; HA1C FLAG Normal (Normal)
[2017-01-14 13:24] LABS: ALB/GLOB RATIO 1.3 (0.9-2); ALKALINE PHOSPHATASE 71 U/L (45-117); AST/SGOT 16 U/L (15-37); THYROID STIMULATING HORMONE 0.753 uIu/ml (0.300-4.500)
--- NOTE | 2017-01-20 09:31 | CODING QUERY MEDICAL NECESSITY ---
SUPPORTING DIAGNOSIS NEEDED A supporting diagnosis is required for the test/procedure performed on this patient in order for us to be reimbursed by the patient's insurance. Please provide a supporting diagnosis for the following test/procedure listed below next to the test name along with your signature. *If there is no additional diagnosis for this patient that would support the following test/procedure please document that below next to the test/procedure. Test(s)/Procedure(s) that require a supporting diagnosis: * HEMOGLOBIN A1C DIAGNOSIS: * VITAMIN D, 25-HYDROXY DIAGNOSIS: * VITAMIN B12 DIAGNOSIS: Provider Signature: Date: Thank you Gretel Tong [employer] Once completed, please kindly fax back to [phone] For questions please call [phone]
== END | disposition home or self-care (01) ==
LOC: C.LABPVFM 11:14
PROVIDERS: ATTEND Nurse Practitioner
DX: F19.10 Other psychoactive substance abuse, uncomplicated (principal)